=== PATIENT | male | born 1955 | race Caucasian/White ===

== ENCOUNTER 2016-09-04 23:29 | Emergency (ER) | payer SELFPAY ==
[2016-09-05] MEDS ORDERED: NORMAL SALINE 1000 ML 1,000 ML IV ONE (04:22)
[2016-09-05] MEDS ORDERED: ACETAMINOPHEN 325 MG TABLET PO ONE (04:23)
[2016-09-05] MEDS ORDERED: MORPHINE SULFATE 10 MG/ML INJ IV ONE (04:23)
[2016-09-05] MEDS ORDERED: ONDANSETRON HCL INJ/PF 4 MG/2 ML SDV IV ONE (04:23)
--- NOTE | 2016-09-05 05:13 | ER Document Report ---
ED General - General Chief Complaint: Abdominal Pain Stated Complaint: HEADACHE/ACHY Time Seen by Provider: 09/05/16 03:59 Mode of Arrival: Medic Information source: Patient TRAVEL OUTSIDE OF THE [place]. IN LAST 30 DAYS: No - HPI Notes: Patient is a 61-year-old white male history of previous colostomy secondary to abdominal trauma from 4 years ago status post colostomy takedown one year ago comes in with report that he has some chronic lower abdominal pain but it seems to have gotten worse over the last few days any noted fever onset this morning at about 11:00 with chills and EMS found a temperature of 101.9 when they picked him up. The patient states abdominal pain seems somewhat worse right lower quadrant surrounding the previous colostomy takedown site. The patient states he gets occasional bleeding from the site when he bends over and stretches the area accidentally. The patient also reports today having nausea but no vomiting. He states he also has noticed a cough today with pharyngitis and mild chest pain associated with the cough. He denies any difficulty breathing. He also reports generalized myalgias and a headache which is not the worst headache of his life. He describes also some mild diarrhea, but has not been on recent antibiotics. He reports no dysuria. He denies any other skin breakdown. He reports no insect bites that he knows of. He denies any specific neck tenderness. He is unaware of any exposure to the flu. - Related Data Allergies/Adverse Reactions: aspirin [Aspirin] Allergy (Severe, Verified 01/29/16 17:10) throat closes bismuth subsalicylate [From Pepto-Bismol] Allergy (Severe, Verified 01/29/16 17: 10) SKIN GONZALEZ NSAIDS (Non-Steroidal Anti-Inflamma [Nsaids] Allergy (Severe, Verified 01/29/16 17:10) throat closes celecoxib [From Celebrex] Allergy (Verified 01/29/16 17:10) Past Medical History - General Information source: Patient - Social History Smoking Status: Never Smoker Frequency of alcohol use: None Drug Abuse: None Lives with: Alone Family History: None Patient has suicidal ideation: No Patient has homicidal ideation: No - Past Medical History Cardiac Medical History: Denies: Hx Coronary Artery Disease, Hx Heart Attack, Hx Hypertension, Hx Pulmonary Embolism Pulmonary Medical History: Reports: Hx Pneumonia - 2013 Denies: Hx Asthma, Hx Bronchitis, Hx COPD, Hx Respiratory Failure, Hx Sleep Apnea, Hx Tuberculosis Neurological Medical History: Denies: Hx Cerebrovascular Accident, Hx Seizures Renal/ Medical History: Reports: Hx Kidney Stones. 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 Denies: Hx Appendectomy, Hx Cholecystectomy, Hx Colostomy, Hx Coronary Artery Bypass Graft , Hx Gastric Bypass Surgery, Hx Herniorrhaphy, Hx Pacemaker, Hx Tonsillectomy - Immunizations Hx Diphtheria, Pertussis, Tetanus Vaccination: No Review of Systems - Review of Systems Notes: REVIEW OF SYSTEMS: CONSTITUTIONAL : Reports fever and chills. EENT: Denies eye, ear pain or symptoms. Denies tongue, or mouth swelling or difficulty swallowing. CARDIOVASCULAR: Denies palpitations or racing or irregular heart beat. Denies ankle edema. RESPIRATORY: Denies shortness of breath, difficulty breathing, or wheezing. GASTROINTESTINAL: Denies abdominal distention. Denies vomiting. Denies blood in vomitus, stools, or per rectum. Denies black, tarry stools. Denies constipation. GENITOURINARY: Denies difficulty urinating, painful urination, burning, frequency, blood in urine, or discharge. MUSCULOSKELETAL: Denies joint pain or swelling. Reports generalized myalgias diffusely. SKIN: Denies rash or sores. Reports area around the colostomy site right lower quadrant region has not completely healed and has occasional bleeding. HEMATOLOGIC : Denies easy bruising or bleeding. LYMPHATIC: Denies swollen, enlarged glands. NEUROLOGICAL: Denies confusion or altered mental status. Denies passing out or loss of consciousness. Denies weakness or paralysis or loss of use of either side. Denies problems with gait or speech. Denies sensory loss, numbness, or tingling. Denies seizures. PSYCHIATRIC: Denies anxiety or stress. Denies depression, suicidal ideation, or homicidal ideation. ALL OTHER SYSTEMS REVIEWED AND NEGATIVE. Dictation was performed using [employer] ([email or web address] voice recognition software Physical Exam - Vital signs Vitals: Temp Pulse Resp BP Pulse Ox 99.9 F 86 18 132/82 H 93 09/04/16 23:39 09/04/16 23:39 09/04/16 23:39 09/04/16 23:39 09/04/16 23:39 - Notes Notes: PHYSICAL EXAMINATION: GENERAL: Well-appearing, well-nourished and in no acute distress. HEAD: Atraumatic, normocephalic. EYES: Pupils equal round and reactive to light, extraocular movements intact, sclera anicteric, conjunctiva are normal. ENT: Nares patent, oropharynx clear without exudates. Moist mucous membranes. Mild coryza noted. NECK: Normal range of motion, supple without lymphadenopathy LUNGS: Breath sounds clear to auscultation bilaterally and equal. No wheezes rales or rhonchi. HEART: Regular rate and rhythm without murmurs ABDOMEN: Soft nondistended abdomen. No guarding, no rebound. Patient has tenderness appreciated to the lower abdominal region right greater than left. The pain seems to center around the colostomy takedown site which has adhesions and scarring appreciated posteriorly. There is mild skin breakdown along the central area with evidence for previous bleeding. No current bleeding. No cellulitis or abscess noted to the area. Musculoskeletal: Normal range of motion, no pitting or edema. No cyanosis. Patient has diffuse myalgias, no specific other findings. NEUROLOGICAL: Cranial nerves grossly intact. Normal speech, normal gait. Normal sensory, motor exams PSYCH: Normal mood, normal affect. SKIN: Warm, Dry, normal turgor, no rashes or lesions noted. Course - Re-evaluation Re-evalutation: 09/05/16 05:15 Blood cultures and a lactic acid were drawn on the patient. Flu test and strep test taken on the patient given his symptoms. Tylenol was given for fever. Normal saline bolus 1 L ordered. Chest x-ray ordered to rule out pneumonia, and CT scan of the abdomen and pelvis to rule out intra-abdominal acute pathology inclusive of bowel obstruction versus colitis versus diverticulitis versus abscess. Urine specimen pending. EKG and cardiac enzymes ordered. After patient received Tylenol, Zofran, morphine, he denied any significant headache stated he felt somewhat better. 09/05/16 05:16 - Vital Signs Vital signs: Temp Pulse Resp BP Pulse Ox 100.1 F 86 15 138/78 H 94 09/05/16 03:39 09/04/16 23:39 09/05/16 05:00 09/05/16 04:01 09/05/16 05:00 - Laboratory Result Diagrams: 09/05/16 04:45 09/05/16 04:45 Laboratory results interpreted by me: 09/05/16 09/05/16 04:45 04:45 MCV 98 H Total Bilirubin 1.6 H ALT 281 H Discharge - Discharge Clinical Impression: Fever Qualifiers: Fever type: unspecified Qualified Code(s): R50.9 - Fever, unspecified Abdominal pain Qualifiers: Abdominal location: lower abdomen, unspecified Qualified Code(s): R10.30 - Lower abdominal pain, unspecified Headache Qualifiers: Headache type: unspecified Headache chronicity pattern: acute headache Intractability: not intractable Qualified Code(s): R51 - Headache Chest pain Qualifiers: Chest pain type: unspecified Qualified Code(s): R07.9 - Chest pain, unspecified
[2016-09-05 05:26] LABS: ABSOLUTE BASOPHILS # (AUTO) 0.1 10^3/uL (0.0-0.2); ABSOLUTE EOSINOPHILS # (AUTO) 0.2 10^3/uL (0.0-0.6); ABSOLUTE LYMPHOCYTES (AUTO) 1.3 10^3/uL (0.5-4.7); ABSOLUTE MONOCYTES (AUTO) 0.7 10^3/uL (0.1-1.4); ABSOLUTE NEUT (AUTO) 5.9 10^3/uL (1.7-8.2); BASOPHILS % (AUTO) 0.8 % (0-2); HEMATOCRIT 45.1 % (37.9-51.0); HEMOGLOBIN 15.1 g/dL (13.5-17.0); HGB HCT DIFFERENCE 0.2; LYMPHOCYTES % (AUTO) 15.7 % (13-45); MEAN CORPUSCULAR HEMOGLOBIN 32.7 pg (27.0-33.4); MEAN CORPUSCULAR HGB CONC 33.4 g/dL (32.0-36.0); MEAN CORPUSCULAR VOLUME 98 fl (80-97); MONOCYTES % (AUTO) 8.9 % (3-13); RED BLOOD COUNT 4.61 10^6/uL (4.35-5.55); RED CELL DISTRIBUTION WIDTH 13.2 % (11.5-14.0); SEGMENTED NEUTROPHILS % (AUTO) 72.6 % (42-78); WHITE BLOOD COUNT 8.1 10^3/uL (4.0-10.5)
--- NOTE | 2016-09-05 05:31 | RADIOLOGY REPORT (SQ) ---
EXAM DESCRIPTION: CHEST SINGLE VIEW COMPLETED DATE/TIME: 09/05/2016 5:14 am REASON FOR STUDY: cough, fever COMPARISON: None. EXAM PARAMETERS: NUMBER OF VIEWS: One view. TECHNIQUE: Single frontal radiographic view of the chest acquired. RADIATION DOSE: NA LIMITATIONS: None. FINDINGS: LUNGS AND PLEURA: Pulmonary vascular congestion. MEDIASTINUM AND HILAR STRUCTURES: No masses. Contour normal. HEART AND VASCULAR STRUCTURES: Heart normal in size. Atherosclerosis. BONES: No acute findings. HARDWARE: None in the chest. OTHER: No other significant finding. IMPRESSION: NO ACUTE RADIOGRAPHIC FINDING IN THE CHEST. TECHNICAL DOCUMENTATION: JOB ID: [id number]
[2016-09-05 05:40] LABS: ALANINE AMINOTRANSFERASE 281 U/L (21-72); ALBUMIN 4.3 g/dL (3.5-5.0); ALKALINE PHOSPHATASE 85 U/L (38-126); ANION GAP 12 (5-19); ASPARTATE AMINO TRANSFERASE 59 U/L (17-59); BILIRUBIN,DIRECT 0.3 mg/dL (0.0-0.4); BILIRUBIN,TOTAL 1.6 mg/dL (0.2-1.3); BLOOD UREA NITROGEN 10 mg/dL (7-20); CALCIUM 9.6 mg/dL (8.4-10.2); CARBON DIOXIDE 24 mmol/L (22-30); CHLORIDE 104 mmol/L (98-107); CREATININE RESULT 1.03 mg/dL (0.52-1.25); GLUCOSE 104 mg/dL (75-110); POTASSIUM 4.5 mmol/L (3.6-5.0); TOTAL PROTEIN 7.9 g/dL (6.3-8.2)
[2016-09-05 06:58] LABS: APPEARANCE,URINE CLEAR; BILIRUBIN,URINE NEGATIVE (NEGATIVE); GLUCOSE, URINE NEGATIVE (NEGATIVE); KETONES,URINE NEGATIVE (NEGATIVE); LEUKOCYTE ESTERASE,URINE NEGATIVE (NEGATIVE); NITRITE,URINE NEGATIVE (NEGATIVE); PROTEIN,URINE NEGATIVE (NEGATIVE); URINE SPECIFIC GRAVITY 1.012; UROBILINOGEN,URINE NEGATIVE mg/dL (<2.0)
--- NOTE | 2016-09-05 07:52 | RADIOLOGY REPORT (SQ) ---
EXAM DESCRIPTION: CT ABD/PELVIS WITH IV ORAL COMPLETED DATE/TIME: 09/05/2016 7:32 am REASON FOR STUDY: fever, lower abd pain, prior colostomy takedown COMPARISON: None. TECHNIQUE: CT scan of the abdomen and pelvis performed using helical scanning technique with dynamic intravenous contrast injection. No oral contrast. Images reviewed with lung, soft tissue, and bone windows. Reconstructed coronal and sagittal MPR images reviewed. Delayed images for evaluation of the urinary system also acquired. All images stored on PACS. All CT scanners at this facility use dose modulation, iterative reconstruction, and/or weight based d osing when appropriate to reduce radiation dose to as low as reasonably achievable (ALARA). [facility]: Dose Right [facility]: CareDose [facility]: Dose Right [facility]: Teradose 4D [facility]: Power Content CONTRAST TYPE AND DOSE: contrast/concentration: Isovue 370.00 mg/ml; Total Contrast Delivered: 90.0 ml; Total Saline Delivered: 70.0 ml RENAL FUNCTION: Creatinine 1.0 RADIATION DOSE: 37.14. LIMITATIONS: None. FINDINGS: LOWER CHEST: Small bibasilar atelectasis or scar. LIVER: Normal size. No masses. No dilated ducts. SPLEEN: Normal size. No focal lesions. PANCREAS: No masses. No significant calcifications. No adjacent inflammation or peripancreatic fluid collections. Pancreatic duct not dilated. GALLBLADDER: Minimal cholelithiasis -sludge, stable. ADRENAL GLANDS: No significant masses or asymmetry. RIGHT KIDNEY AND URETER: No solid masses. No significant calcifications. No hydronephrosis or hyd roureter. LEFT KIDNEY AND URETER: No solid masses. 0.2 cm stone. No hydronephrosis or hydroureter. AORTA AND VESSELS: No aneurysm. No dissection. Renal arteries, SMA, celiac without stenosis. RETROPERITONEUM: No retroperitoneal adenopathy, hemorrhage or masses. BOWEL AND PERITONEAL CAVITY: Bowel suture of the right paracentral abdomen. Minimal diverticulitis pattern associated with a the distal left colon. No significant free fluid and no abscess. APPENDIX: Normal. PELVIS: No mass or free fluid. Normal bladder. ABDOMINAL WALL: No masses. No hernias. BONES: Mild scoliotic curvature. Moderate vacuum disc desiccation at the L5-S1 and T11 through L1 le vels. OTHER: No other significant finding. IMPRESSION: Minimal left colonic diverticulitis. TECHNICAL DOCUMENTATION: JOB ID: [id number] Quality ID # [id number]: Final reports with documentation of one or more dose reduction techniques (e.g., Au tomated exposure control, adjustment of the mA and/or kV according to patient size, use of iterative reconstruction technique) 2010 [employer]- All Rights Reserved
[2016-09-05 08:16] VITALS: BP 151/101
--- NOTE | 2016-09-05 08:40 | EKG REPORT ---
SEVERITY:- BORDERLINE ECG - SINUS RHYTHM PROBABLE LEFT ATRIAL ABNORMALITY LEFT AXIS DEVIATION : Confirmed by: Marito Yepez 05-Sep-2016 08:39:12
== END 2016-09-05 08:17 | disposition home or self-care (01) ==
LOC: ER 23:29
DX: K57.33 Diverticulitis of large intestine without perforation or abscess with bleeding (principal); R51 Headache; R50.9 Fever, unspecified; R07.9 Chest pain, unspecified; R05 Cough; J02.9 Acute pharyngitis, unspecified; M79.1 Myalgia; R19.7 Diarrhea, unspecified; Z98.890 Other specified postprocedural states; Z88.6 Allergy status to analgesic agent; Z88.8 Allergy status to other drugs, medicaments and biological substances; Z87.01 Personal history of pneumonia (recurrent); L90.5 Scar conditions and fibrosis of skin
CPT/HCPCS: 93005; 99285; 96361; 96374; 96375; 36415; 87040; 87070; 87880; 83690; 85025; 80053; 81001; 84484; 83605; 87804; 71010; 74177; 93010; J2270; J2405; J7030

== ENCOUNTER → 2017-12-12 | Outpatient (CLI) | payer MEDICARE ==
--- NOTE | 2017-12-12 16:04 | RADIOLOGY REPORT (SQ) ---
EXAM DESCRIPTION: MRI LUMBAR SPINE WITHOUT COMPLETED DATE/TIME: 12/12/2017 12:22 pm REASON FOR STUDY: OTHER CHRONIC PAIN G89.29 OTHER CHRONIC PAIN COMPARISON: CT abdomen pelvis 09/05/2016 TECHNIQUE: Sagittal and Axial imaging includes T1, T2, STIR and gradient echo sequences. Coronal T2/ HASTE imaging. LIMITATIONS: None. FINDINGS: VISUALIZED UPPER ABDOMEN: Limited evaluation. No acute or suspicious findings suggested. SEGMENTATION: No transitional anatomy. The lowest well-developed disc space is labeled L5-S1. ALIGNMENT: Mild convex rightward lumbar curvature VERTEBRAE: No compression deformities BONE MARROW: Benign hemangioma T12 vertebral body. Mild fatty degenerative endplate changes at T11-1 2 and T12-L1 DISC SIGNAL: High-grade disc space loss of height at T11-12 and T12-L1. Diffuse decreased T2 weighte d intervertebral disc signal throughout the lumbar spine POSTERIOR ELEMENTS: Generally intact. No pars defect evident. HARDWARE: None in the spine. CORD AND CONUS: Normal in size and signal intensity. Conus at the L1 level. SOFT TISSUES: No aortic aneurysm seen. No bulky retroperitoneal adenopathy or mass. No paraspinal mas s or fluid. T11-12: Disc space loss of height with broad diffuse posterior disc bulging, mild bilateral facet an d ligament hypertrophy. Moderate right, mild left foraminal narrowing. Mild central stenosis T12-L1: Disc space loss of height with broad diffuse posterior disc bulging and bilateral facet hype rtrophy. Mild central stenosis. No significant foraminal narrowing. L1-L2: Minimal posterior disc bulging, mild bilateral facet hypertrophy. No central or foraminal enc roachment L2-L3: Minimal posterior disc bulging, mild bilateral facet hypertrophy. No central or foraminal enc roachment L3-L4: Mild diffuse posterior disc bulging right greater than left, moderate bilateral facet hypertro phy. Borderline central canal narrowing. Moderate right, mild left foraminal narrowing. L4-L5: Mild diffuse posterior disc bulging, moderate bilateral facet and ligament hypertrophy. Borde rline central canal narrowing. Moderate right, mild left foraminal narrowing L5-S1: Mild posterior disc bulge, bulky bilateral facet hypertrophy. No central stenosis. Mild bila teral foraminal narrowing. SACRUM: Visualized upper sacrum intact. OTHER: No other significant findings. IMPRESSION: Diffuse degenerative changes as above. TECHNICAL DOCUMENTATION: JOB ID: [id number] [employer]- All Rights Reserved Reading location - IP/workstation name: [email or web address]
== END ==
LOC: RAD 11:32
PROVIDERS: ATTEND Family Medicine
DX: G89.29 Other chronic pain (principal)
CPT/HCPCS: 72148

== ENCOUNTER → 2018-01-07 | Outpatient (CLI) | payer MEDICARE ==
--- NOTE | 2018-01-07 14:38 | RADIOLOGY REPORT (SQ) ---
EXAM DESCRIPTION: MRI RT LOWER EXTREMITY WITHOUT COMPLETED DATE/TIME: 01/07/2018 1:34 pm REASON FOR STUDY: RIGHT HIP PAIN (M25.551) M25.551 PAIN IN RIGHT HIP COMPARISON: None. TECHNIQUE: Righthip images acquired and stored on PACS. Multiplanar images to include fat sensitive sequences as T1, fluid sensitive sequences as T2/STIR and gradient echo sequences. Large FOV fat and fluid sensitive sequences include pelvis and opposite hip. LIMITATIONS: None. FINDINGS: BONE CORTEX AND MARROW: No generalized marrow replacement. No occult fracture. No worriso me bone lesions. TARGETED HIP: FEMORAL HEAD: Small osteophytes. Normal shape of the femoral head neck. ACETABULUM: Mild osteophyte and subchondral cyst formation. No effusion. LABRUM: Degenerative change. No obvious acute labral tear. TROCHANTER: No trochanteric bursal effusion. No edema/fluid at the insertions of the gluteus medius and gluteus minimus. OPPOSITE HIP: Limited evaluation. No worrisome bone lesions. No significant effusion. PELVIS, LOWER LUMBAR SPINE, SACROILIAC JOINTS: PELVIS : No insufficiency/stress fractures. No significant degenerative changes. Sacroiliac joints normal. L SPINE: See separate report 12/12/2017. MUSCLES AND SOFT TISSUES: Adductors and piriformis normal. Abductors and greater trochanteric bursa n ormal without edema or fluid. Iliopsoas bursa without fluid. Hamstring attachments without edema or t ear. PELVIC SOFT TISSUES: No masses or adenopathy. SCIATIC NERVE: Identified, without masses or abnormal signal. OTHER: No other significant finding. IMPRESSION: Osteoarthritis. No acute findings. TECHNICAL DOCUMENTATION: JOB ID: [id number] [employer]- All Rights Reserved Reading location - IP/workstation name: [email or web address]
== END ==
LOC: RAD 12:12
PROVIDERS: ATTEND Family Medicine
DX: M25.551 Pain in right hip (principal); M16.11 Unilateral primary osteoarthritis, right hip

== ENCOUNTER → 2018-02-22 | Outpatient (CLI) | payer MEDICARE ==
--- NOTE | 2018-02-22 11:20 | RADIOLOGY REPORT (SQ) ---
EXAM DESCRIPTION: U/S ABDOMEN LIMITED W/O DOP COMPLETED DATE/TIME: 02/22/2018 8:39 am REASON FOR STUDY: VENTRAL HERNIA W/O OBSTRUCTION OR GANGRENE K43.9 VENTRAL HERNIA WITHOUT OBSTRUCTI ON OR GANGRENE COMPARISON: Abdominal CT scan dated August 2016 TECHNIQUE: Dynamic and static grayscale images acquired of the localized site of clinical concern an d recorded on PACS. Additional selected color Doppler and spectral images recorded. SITE OF CONCERN: Right mid abdomen LIMITATIONS: None. FINDINGS: SKIN AND SUBCUTANEOUS TISSUES: No masses. No fluid collections. No edema. No definite her lexa sac was identified. DEEP SOFT TISSUES/MUSCLES: No masses. No fluid collections. No edema. VASCULAR: No increased or decreased vascularity. No occlusions. OTHER: There is an area of shadowing in the region of the patient's pain which could represent an are a of apparent scarring identified on the CT scan. Other etiologies cannot be completely excluded how ever. IMPRESSION: No definite hernia sac is identified. Other findings as noted above TECHNICAL DOCUMENTATION: JOB ID: [id number] [employer]- All Rights Reserved Reading location - IP/workstation name: [email or web address]
== END ==
LOC: RAD 07:05
PROVIDERS: ATTEND Family Medicine
DX: K43.9 Ventral hernia without obstruction or gangrene (principal)
CPT/HCPCS: 76705

== ENCOUNTER 2018-10-19 17:49 | Emergency (ER) | payer MEDICARE, MEDICAID ==
--- NOTE | 2018-10-19 19:59 | ER Document Report ---
ED Medical Screen (RME) - General Chief Complaint: Low Back Pain Stated Complaint: HIP PAIN Time Seen by Provider: 10/19/18 19:48 Primary Care Provider: ZULEMA THAO MD [Primary Care Provider] - Follow up as needed Mode of Arrival: Ambulatory Information source: Patient Notes: Patient presents complaining of right hip pain that radiates around to right groin and into the scrotum. Patient states he has had pain for the past week. Patient does complain of some difficulty voiding. No fever. Patient also states that he is taken 14 tablets of Tylenol today to treat his pain symptoms. I have greeted and performed a rapid initial assessment of this patient. A comprehensive ED assessment and evaluation of the patient, analysis of test results and completion of the medical decision making process will be conducted by additional ED providers. TRAVEL OUTSIDE OF THE [place] IN LAST 30 DAYS: No - Related Data Allergies/Adverse Reactions: aspirin [Aspirin] Allergy (Severe, Verified 01/29/16 17:10) throat closes bismuth subsalicylate [From Pepto-Bismol] Allergy (Severe, Verified 01/29/16 17:10) SKIN GONZALEZ NSAIDS (Non-Steroidal Anti-Inflamma [Nsaids] Allergy (Severe, Verified 01/29/16 17:10) throat closes celecoxib [From Celebrex] Allergy (Verified 01/29/16 17:10) ketorolac [From Toradol] Allergy (Verified 10/19/18 17:56) Past Medical History - Social History Frequency of alcohol use: None Drug Abuse: None - Past Medical History Cardiac Medical History: Denies: Hx Coronary Artery Disease, Hx Heart Attack, Hx Hypertension, Hx Pulmonary Embolism Pulmonary Medical History: Reports: Hx Pneumonia - 2013 Denies: Hx Asthma, Hx Bronchitis, Hx COPD, Hx Respiratory Failure, Hx Sleep Apnea, Hx Tuberculosis Neurological Medical History: Denies: Hx Cerebrovascular Accident, Hx Seizures Renal/ Medical History: Reports: Hx Kidney Stones. 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 Denies: Hx Appendectomy, Hx Colostomy, Hx Coronary Artery Bypass Graft, Hx Gastric Bypass Surgery, Hx Herniorrhaphy, Hx Pacemaker, Hx Tonsillectomy - Immunizations Hx Diphtheria, Pertussis, Tetanus Vaccination: No Physical Exam - Vital signs Vitals: Temp Pulse Resp BP Pulse Ox 97.7 F 95 16 139/99 H 95 10/19/18 18:18 10/19/18 18:18 10/19/18 18:18 10/19/18 18:18 10/19/18 18:18 - General Notes: Right lower back, right inguinal tenderness Course - Vital Signs Vital signs: Temp Pulse Resp BP Pulse Ox 97.7 F 95 16 139/99 H 95 10/19/18 18:18 10/19/18 18:18 10/19/18 18:18 10/19/18 18:18 10/19/18 18:18 Doctor's Discharge - Discharge Referrals: ZULEMA THAO MD [Primary Care Provider] - Follow up as needed
--- NOTE | 2018-10-19 21:41 | RADIOLOGY REPORT (SQ) ---
EXAM DESCRIPTION: US SCROTUM COMPLETED DATE/TME: 10/19/2018 19:56 CLINICAL HISTORY: 63 years, Male, scrotal pain COMPARISON: None. TECHNIQUE: Axial 2-D grayscale images of the scrotum were obtained. Doppler was utilized. LIMITATIONS: None. FINDINGS: Right testicle measures 2.7 x 3.7 x 2.3 cm in size. It demonstrates normal echogenicity and normal low resistance arterial waveforms. A few small right epididymal head cysts are noted. There is a tiny right hydrocele. Left testicle measures 3.3 x 1.7 x 2.3 cm in size. It also demonstrates normal echogenicity and normal low resistance arterial waveforms. Left epididymal head appears normal. There is a tiny left hydrocele. Focused sonographic evaluation of the right lower quadrant of the patient's site of pain was performed. No suspicious sonographic abnormalities are identified at this location. IMPRESSION: No acute intratesticular abnormality. Tiny bilateral hydroceles. copyright 2010 [employer]- All Rights Reserved
--- NOTE | 2018-10-19 21:42 | RADIOLOGY REPORT (SQ) ---
AP PELVIS AND 2 VIEWS OF RIGHT HIP EXAM DATE: 10/19/2018 7:56 PM CDT HISTORY: r hip pain. COMPARISON: None. FINDINGS: No acute fracture or dislocation is seen. The joint spaces are preserved. The soft tissues are unremarkable. IMPRESSION: No acute fracture or malalignment.
[2018-10-19 21:47] LABS: ABSOLUTE BASOPHILS # (AUTO) 0.1 10^3/uL (0.0-0.2); ABSOLUTE EOSINOPHILS # (AUTO) 0.2 10^3/uL (0.0-0.6); ABSOLUTE LYMPHOCYTES (AUTO) 3.8 10^3/uL (0.5-4.7); ABSOLUTE MONOCYTES (AUTO) 0.8 10^3/uL (0.1-1.4); ABSOLUTE NEUT (AUTO) 4.9 10^3/uL (1.7-8.2); BASOPHILS % (AUTO) 0.8 % (0-2); EOSINOPHILS % (AUTO) 2.1 % (0-6); HEMATOCRIT 46.6 % (37.9-51.0); LYMPHOCYTES % (AUTO) 38.8 % (13-45); MEAN CORPUSCULAR HGB CONC 34.5 g/dL (32.0-36.0); MEAN CORPUSCULAR VOLUME 99 fl (80-97); MONOCYTES % (AUTO) 7.9 % (3-13); PLATELET COUNT 401 10^3/uL (150-450); RED BLOOD COUNT 4.73 10^6/uL (4.35-5.55); RED CELL DISTRIBUTION WIDTH 13.5 % (11.5-14.0); SEGMENTED NEUTROPHILS % (AUTO) 50.4 % (42-78); TOTAL CELLS COUNTED % (AUTO) 100 %; WHITE BLOOD COUNT 9.7 10^3/uL (4.0-10.5)
--- NOTE | 2018-10-19 21:53 | RADIOLOGY REPORT (SQ) ---
EXAM DESCRIPTION: XR LUMBAR SPINE ANTEROPOSTERIOR, LATERAL, AND OBLIQUES COMPLETED DATE/TME: 10/19/2018 19:56 CLINICAL HISTORY: 63 years, Male, r lower back pain COMPARISON: None. NUMBER OF VIEWS: 5 TECHNIQUE: Five views of the lumbar spine were obtained in AP, bilateral oblique, lateral and spot projections. LIMITATIONS: None. FINDINGS: Slight dextroconvex curvature of the lumbar spine and levoconvex curvature of the lower thoracic spine. Alignment of the lumbar spine is within normal limits. There is no clearly acute subluxation or fracture deformity. Morphology of the vertebral bodies and intervertebral disc spaces is compatible with multilevel degenerative change. Lower thoracic and L1 level vertebral body loss of height, age indeterminate. Multilevel ventral osseous spurring compatible with osteophyte formation and degenerative endplate change. Loss of disk height of L5-S1 compatible with disk degenerative change. The facets are normal in alignment bilaterally. The remainder of the visualized bones are within normal limits. Dense atherosclerotic calcification of the abdominopelvic aorta. IMPRESSION: Multilevel degenerative changes as detailed above. If the patient's symptoms persist, follow-up evaluation with MRI is recommended. copyright 2010 [employer]- All Rights Reserved
[2018-10-19 21:56] LABS: ANION GAP 12 (5-19); BLOOD UREA NITROGEN 17 mg/dL (7-20); CALCIUM 10.3 mg/dL (8.4-10.2); CARBON DIOXIDE 25 mmol/L (22-30); CHLORIDE 103 mmol/L (98-107); GLUCOSE 89 mg/dL (75-110); POTASSIUM 4.7 mmol/L (3.6-5.0)
[2018-10-19 21:57] LABS: ACETAMINOPHEN < 10 ug/mL (10-30)
[2018-10-19] MEDS ORDERED: FENTANYL CITRATE INJ/PF 100 MCG/2 ML AMPUL IV ONE (23:08)
--- NOTE | 2018-10-19 23:15 | ER Document Report ---
ED General - General Chief Complaint: Low Back Pain Stated Complaint: HIP PAIN Time Seen by Provider: 10/19/18 19:48 Primary Care Provider: ZULEMA THAO MD [Primary Care Provider] - Follow up as needed Mode of Arrival: Ambulatory Notes: RME Provider note: Patient presents complaining of right hip pain that radiates around to right groin and into the scrotum. Patient states he has had pain for the past week. Patient does complain of some difficulty voiding. No fever. Patient also states that he is taken 14 tablets of Tylenol today to treat his pain symptoms. MY HPI: Patient is complaining of multiple complaints. Initially was complaining of right flank pain radiating to his right groin but then is complaining of an electrical pain radiating towards the lateral aspect of his right upper leg. Patient is complaining of generalized right hip pain. Patient does complain of urinary hesitancy. Patient states he has seen his primary care provider for right hip pain in the p ast. States he was placed on gabapentin and states he did not like how it made him feel. Patient states he does have a history of a kidney stone and feels as though this pain is similar. Patient also has an extensive history of abdominal surgeries. Has multiple scars. Said he had an ileostomy bag after a traumatic injury to his abdomen. Patient does have extensive scarring that is well-healed. Patient's denying any change in his bowel habits. Patient's denying any fevers, injury to his right hip, right back, right flank, right abdomen recently. TRAVEL OUTSIDE OF THE [place] IN LAST 30 DAYS: No - Related Data Allergies/Adverse Reactions: aspirin [Aspirin] Allergy (Severe, Verified 01/29/16 17:10) throat closes bismuth subsalicylate [From Pepto-Bismol] Allergy (Severe, Verified 01/29/16 17:10) SKIN GONZALEZ NSAIDS (Non-Steroidal Anti-Inflamma [Nsaids] Allergy (Severe, Verified 01/29/16 17:10) throat closes celecoxib [From Celebrex] Allergy (Verified 01/29/16 17:10) ketorolac [From Toradol] Allergy (Verified 10/19/18 17:56) Past Medical History - General Information source: Patient - Social History Smoking Status: Never Smoker Chew tobacco use (# tins/day): No Frequency of alcohol use: None Drug Abuse: None Family History: None Patient has suicidal ideation: No Patient has homicidal ideation: No - Past Medical History Cardiac Medical History: Denies: Hx Coronary Artery Disease, Hx Heart Attack, Hx Hypertension, Hx Pulmonary Embolism Pulmonary Medical History: Reports: Hx Pneumonia - 2013 Denies: Hx Asthma, Hx Bronchitis, Hx COPD, Hx Respiratory Failure, Hx Sleep Apnea, Hx Tuberculosis Neurological Medical History: Denies: Hx Cerebrovascular Accident, Hx Seizures Renal/ Medical History: Reports: Hx Kidney Stones. Denies: Hx Peritoneal Dialysis Malignancy Medical History: Denies Hx Lung Cancer GI Medical History: Denies: Hx Crohn's Disease, Hx Gastroesophageal Reflux Di sease, Hx Hiatal Hernia, Hx Irritable Bowel, Hx Liver Failure, Hx Pancreatitis, Hx Ulcer Musculoskeletal Medical History: Reports Hx Arthritis - fingers, Denies Hx Fibromyalgia, Denies Hx Muscular Dystrophy Psychiatric Medical History: Reports: Hx Depression - from care of ileostomy/wants it gone Denies: Hx Bipolar Disorder, Hx Post Traumatic Stress Disorder, Hx Schizophrenia Traumatic Medical History: Reports: Hx Fractures - rt long finger Past Surgical History: Reports: Hx Abdominal Surgery - hernia repair/illeostomy, Hx Bowel Surgery - 11/12/14 viscous bowel perforation, Hx Cholecystectomy, Hx Orthopedic Surgery - R Knee and R Shoulder. Denies: Hx Appendectomy, Hx Colostomy, Hx Coronary Artery Bypass Graft, Hx Gastric Bypass Surgery, Hx Herniorrhaphy, Hx Pacemaker, Hx Tonsillectomy - Immunizations Hx Diphtheria, Pertussis, Tetanus Vaccination: No Review of Systems - Review of Systems Constitutional: denies: Fever EENT: No symptoms reported Cardiovascular: No symptoms reported Respiratory: No symptoms reported Gastrointestinal: See HPI Genitourinary: See HPI Male Genitourinary: See HPI Musculoskeletal: See HPI Skin: No symptoms reported Hematologic/Lymphatic: No symptoms reported Neurological/Psychological: No symptoms reported Physical Exam - Vital signs Vitals: Temp Pulse Resp BP Pulse Ox 97.7 F 95 16 139/99 H 95 10/19/18 18:18 10/19/18 18:18 10/19/18 18:18 10/19/18 18:18 10/19/18 18:18 - Notes Notes: GENERAL: Alert, interacts well. No acute distress. HEAD: Normocephalic, atraumatic. EYES: Pupils equal, round, and reactive to light. Extraocular movements intact. ENT: Oral mucosa moist, tongue midline. NECK: Full range of motion. Supple. Trachea midline. LUNGS: Clear to auscultation bilaterally, no wheezes, rales, or rhonchi. No respiratory distress. HEART: Regular rate and rhythm. No murmur ABDOMEN: Soft, no McBurney's point tenderness, no Vaughn sign noted. Non-distended. Bowel sounds present in all 4 quadrants. Intermittent pain right pelvic region into right groin. EXTREMITIES: Moves all 4 extremities spontaneously. No edema, normal radial and dorsalis pedis pulses bilaterally. No cyanosis. 5 out of 5 strength all 4 extremities. Pain upon palpation right ASIS. Full range of motion right hip, right knee, right ankle. BACK: no cervical, thoracic, lumbar midline tenderness. No saddle anesthesia, normal distal neurovascular exam. Right CVA tenderness noted. NEUROLOGICAL: Alert and oriented x3. Normal speech. cranial nerves II through XII grossly intact PSYCH: Normal affect, normal mood. SKIN: Warm, dry, normal turgor. No rashes or lesions noted. Genitalia: [employer] Arina PCT, bilateral testicles nonerythematous, slight tenderness of right testicle. Course - Re-evaluation Re-evalutation: 10/20/18 03:01 Laboratory 10/19/18 10/19/18 10/19/18 21:28 21:28 21:28 WBC 9.7 RBC 4.73 Hgb 16.0 Hct 46.6 MCV 99 H MCH 34.0 H MCHC 34.5 RDW 13.5 Plt Count 401 Seg Neutrophils % 50.4 Lymphocytes % 38.8 Monocytes % 7.9 Eosinophils % 2.1 Basophils % 0.8 Absolute Neutrophils 4.9 Absolute Lymphocytes 3.8 Absolute Monocytes 0.8 Absolute Eosinophils 0.2 Absolute Basophils 0.1 Sodium 140.0 Potassium 4.7 Chloride 103 Carbon Dioxide 25 Anion Gap 12 BUN 17 Creatinine 1.07 Est GFR ( Amer) > 60 Est GFR (Non-Af Amer) > 60 Glucose 89 Calcium 10.3 H Total Bilirubin 1.2 Direct Bilirubin 0.4 Neonat Total Bilirubin Not Reportable Neonat Direct Bilirubin Not Reportable Neonat Indirect Bili Not Reportable AST 22 ALT 25 Alkaline Phosphatase 54 Total Protein 8.1 Albumin 5.0 Urine Color Urine Appearance Urine pH Ur Specific [place] Urine Protein Urine Glucose (UA) Urine Ketones Urine Blood Urine Nitrite Urine Bilirubin Urine Urobilinogen Ur Leukocyte Esterase Urine WBC (Auto) Urine RBC (Auto) Urine Mucus (Auto) Urine Ascorbic Acid Acetaminophen < 10 L 10/19/18 22:07 WBC RBC Hgb Hct MCV MCH MCHC RDW Plt Count Seg Neutrophils % Lymphocytes % Monocytes % Eosinophils % Basophils % Absolute Neutrophils Absolute Lymphocytes Absolute Monocytes Absolute Eosinophils Absolute Basophils Sodium Potassium Chloride Carbon Dioxide Anion Gap BUN Creatinine Est GFR ( Amer) Est GFR (Non-Af Amer) Glucose Calcium Total Bilirubin Direct Bilirubin Neonat Total Bilirubin Neonat Direct Bilirubin Neonat Indirect Bili AST ALT Alkaline Phosphatase Total Protein Albumin Urine Color YELLOW Urine Appearance CLEAR Urine pH 5.0 Ur Specific [place] 1.031 Urine Protein NEGATIVE Urine Glucose (UA) NEGATIVE Urine Ketones TRACE H Urine Blood NEGATIVE Urine Nitrite NEGATIVE Urine Bilirubin NEGATIVE Urine Urobilinogen NEGATIVE Ur Leukocyte Esterase NEGATIVE Urine WBC (Auto) 1 Urine RBC (Auto) 2 Urine Mucus (Auto) RARE Urine Ascorbic Acid 40 H Acetaminophen Hip/Pelvis X-Ray 10/19/18 19:56 IMPRESSION: No acute fracture or malalignment. Lumbar Spine X-Ray 10/19/18 19:56 IMPRESSION: Multilevel degenerative changes as detailed above. If the patient's symptoms persist, follow-up evaluation with MRI is recommended. copyright 2010 [employer]- All Rights Reserved Scrotum Ultrasound 10/19/18 19:56 IMPRESSION: No acute intratesticular abnormality. Tiny bilateral hydroceles. copyright 2010 [employer]- All Rights Reserved Abdomen/Pelvis CT 10/19/18 23:08 IMPRESSION: No acute abdominal or pelvic pathology. 10/20/18 03:02 Patient's labs show no signs of leukocytosis, no signs of anemia, no signs of electrolyte abnormalities, urine shows no signs of infection. Patient's Tylenol level was negative. CT imaging shows no signs of abdominal pelvic pathology to include kidney stones. Patient is been treated with pain medication in the emergency department and upon reassessment is sleeping in no apparent distress. Easily arousable to verbal stimuli. Patient then voices that his hip continues to hurt. I have discussed he needs to follow-up with primary care provider and orthopedics for potential MRI for this degenerative disc disease. As I walk out of the room patient asked me to turn the light off because he would like to go back to sleep. At this time will discharge with return precautions and follow-up recommendations. Verbal discharge instructions given a the bedside and opportunity for questions given. Medication warnings reviewed. Patient is in agreement with this plan and has verbalized understanding of return precautions and the need for primary care follow-up in the next 24-72 hours. This medical record was dictated with voice recognizing software. There may be grammatical, syntax errors that are unintended. - Vital Signs Vital signs: Temp Pulse Resp BP Pulse Ox 97.7 F 95 16 139/99 H 95 10/19/18 18:18 10/19/18 18:18 10/19/18 18:18 10/19/18 18:18 10/19/18 18:18 - Laboratory Result Diagrams: 10/19/18 21:28 10/19/18 21:28 Laboratory results interpreted by me: 10/19/18 10/19/18 10/19/18 21:28 21:28 22:07 MCV 99 H MCH 34.0 H Calcium 10.3 H Urine Ketones TRACE H Urine Ascorbic Acid 40 H Acetaminophen < 10 L Discharge - Discharge Clinical Impression: Right hip pain, Right groin pain Right low back pain Qualifiers: Chronicity: acute Sciatica presence: without sciatica Qualified Code(s): M54.5 - Low back pain Condition: Stable Disposition: HOME, SELF-CARE Instructions: Muscle Strain ([facility]), Low Back Pain ([facility]) Additional Instructions: As we discussed you have been seen and treated in the emergency department for your right back, right hip, right groin, right leg pain. Your tests revealed no signs of abnormalities besides degenerative disc disease. You should follow-up with your primary care provider and orthopedics for an MRI. Please return to the emergency room for any further concerns. Referrals: ZULEMA THAO MD [Primary Care Provider] - Follow up as needed SAUNDRA DIEZ DO [ACTIVE STAFF] - Follow up as needed
[2018-10-19 23:32] LABS: ALKALINE PHOSPHATASE 54 U/L (38-126); ASPARTATE AMINO TRANSFERASE 22 U/L (17-59); BILIRUBIN,DIRECT 0.4 mg/dL (0.0-0.4); BILIRUBIN,TOTAL 1.2 mg/dL (0.2-1.3); TOTAL PROTEIN 8.1 g/dL (6.3-8.2)
[2018-10-20 01:11] LABS: APPEARANCE,URINE CLEAR; BILIRUBIN,URINE NEGATIVE (NEGATIVE); COLOR,URINE YELLOW; GLUCOSE, URINE NEGATIVE (NEGATIVE); KETONES,URINE TRACE mg/dL (NEGATIVE); LEUKOCYTE ESTERASE,URINE NEGATIVE (NEGATIVE); NITRITE,URINE NEGATIVE (NEGATIVE); PROTEIN,URINE NEGATIVE (NEGATIVE); URINE SPECIFIC GRAVITY 1.031; UROBILINOGEN,URINE NEGATIVE mg/dL (<2.0)
--- NOTE | 2018-10-20 02:05 | RADIOLOGY REPORT (SQ) ---
CT ABDOMEN PELVIS WITH IV CONTRAST EXAM DATE: 10/19/2018 11:08 PM CDT HISTORY: Right lower quadrant pain. Right flank pain. COMPARISON: 02/22/2018 TECHNIQUE: CT scan of the abdomen and pelvis was performed with IV contrast. This exam was performed according to our departmental dose-optimization program, which includes automated exposure control, adjustment of the mA and/or kV according to patient size and/or use of iterative reconstruction technique. FINDINGS: The lung bases are clear. No pleural or pericardial effusions. Diffuse hepatic steatosis. There has been a prior cholecystectomy. Spleen, pancreas, adrenal glands, and kidneys are normal. No hydronephrosis or urinary stones. The pelvic organs are unremarkable. There are scattered colonic diverticula without surrounding inflammatory changes. No small bowel obstruction. The appendix is normal. No intraperitoneal free fluid or free air is seen. Prior ventral hernia repair is noted. Small left fat-containing inguinal hernia. The aorta is normal caliber and contains atherosclerotic calcifications. There are mild degenerative changes of the spine. IMPRESSION: No acute abdominal or pelvic pathology.
[2018-10-20 03:14] VITALS: BP 173/81
== END 2018-10-20 03:13 | disposition home or self-care (01) ==
LOC: ER 17:49
DX: M47.9 Spondylosis, unspecified (principal); M54.5 Low back pain; R10.2 Pelvic and perineal pain; M25.551 Pain in right hip; N43.3 Hydrocele, unspecified; R39.11 Hesitancy of micturition; Z98.890 Other specified postprocedural states; Z88.8 Allergy status to other drugs, medicaments and biological substances; Z90.49 Acquired absence of other specified parts of digestive tract
CPT/HCPCS: 99284; 96374; 36415; 80307; 85025; 80076; 80048; 81001; 73502; 72110; 76870; 93976; 74177; J3010

== ENCOUNTER → 2018-12-02 | Outpatient (CLI) | payer MEDICARE, MEDICAID ==
--- NOTE | 2018-12-02 13:46 | RADIOLOGY REPORT (SQ) ---
EXAM DESCRIPTION: CT ABD/PELVIS WITH IV ORAL COMPLETED DATE/TIME: 12/02/2018 1:27 pm REASON FOR STUDY: RIGHT LOWER QUADRANT PAIN (R10.31) R10.31 RIGHT LOWER QUADRANT PAIN COMPARISON: CT abdomen pelvis 10/20/2018, 09/05/2016, 01/29/2016 TECHNIQUE: CT scan of the abdomen and pelvis performed using helical scanning technique with dynamic intravenous contrast injection. Patient drank oral contrast. Images reviewed with lung, soft tissue , and bone windows. Reconstructed coronal and sagittal MPR images reviewed. Delayed images for evalua tion of the urinary system also acquired. All images stored on PACS. All CT scanners at this facility use dose modulation, iterative reconstruction, and/or weight based d osing when appropriate to reduce radiation dose to as low as reasonably achievable (ALARA). [facility]: Dose Right [facility]: CareDose [facility]: Dose Right [facility]: Teradose 4D [facility]: Screen Tonic CONTRAST TYPE AND DOSE: contrast/concentration: Isovue 350.00 mg/ml; Total Contrast Delivered: 100.0 ml; Total Saline Delivered: 72.0 ml RENAL FUNCTION: Creatinine 0.9 RADIATION DOSE: CT Rad equipment meets quality standard of care and radiation dose reduction techniq ues were employed. CTDIvol: 15.0 - 17.3 mGy. DLP: 1629 mGy-cm.. LIMITATIONS: None. FINDINGS: There is minimal stranding along the right lower quadrant anterior abdominal wall on axial image 60-62, in an area of prior surgical incision. Anterior abdominal wall appears thin but intact on sagittal image 29 in this area. Findings are unchanged from previous exams. Intact laparoscopic umbilical ventral hernia repair. LOWER CHEST: No significant findings. No nodules or infiltrates. LIVER: Normal size. No masses. No dilated ducts. SPLEEN: Normal size. No focal lesions. PANCREAS: No masses. No significant calcifications. No adjacent inflammation or peripancreatic fluid collections. Pancreatic duct not dilated. GALLBLADDER: Surgically absent ADRENAL GLANDS: No significant masses or asymmetry. RIGHT KIDNEY AND URETER: No solid masses. 2 mm right lower pole intrarenal nonobstructive stone N o hydronephrosis or hydroureter. LEFT KIDNEY AND URETER: No solid masses. Less than 1 cm cyst left lower pole kidney. 2 mm left lowe r pole intrarenal nonobstructive stone. No hydronephrosis or hydroureter. AORTA AND VESSELS: No aneurysm. No dissection. Renal arteries, SMA, celiac without stenosis. RETROPERITONEUM: No retroperitoneal adenopathy, hemorrhage or masses. BOWEL AND PERITONEAL CAVITY: Patient drank oral contrast. No CT evidence of bowel obstruction or darian e intraperitoneal air or fluid. Descending colon diverticuli without CT signs of acute diverticuliti s. APPENDIX: Normal. PELVIS: No mass. No free fluid. Normal bladder. ABDOMINAL WALL: Fatty left inguinal hernia. Other findings as above BONES: Degenerative disc changes L5-S1 OTHER: No other significant finding. IMPRESSION: Minimal right lower quadrant stranding along the anterior abdominal wall. Appearance is similar compared to prior scans. Intact laparoscopic umbilical hernia repair Fat containing left inguinal hernia. Post cholecystectomy. Tiny bilateral intrarenal nonobstructive stones. Descending colon diverticulo sis TECHNICAL DOCUMENTATION: JOB ID: [id number] Quality ID # [id number]: Final reports with documentation of one or more dose reduction techniques (e.g., Au tomated exposure control, adjustment of the mA and/or kV according to patient size, use of iterative reconstruction technique) 2010 [employer]- All Rights Reserved Reading location - IP/workstation name: [email or web address]
== END ==
LOC: RAD 12:46
PROVIDERS: ATTEND Surgery
DX: R10.31 Right lower quadrant pain (principal)
CPT/HCPCS: 74177; 82565

== ENCOUNTER → 2019-11-09 | Outpatient (CLI) | payer MEDICARE, MEDICAID ==
--- NOTE | 2019-11-09 13:38 | RADIOLOGY REPORT (SQ) ---
EXAM DESCRIPTION: SACROILIAC JOINTS IMAGES COMPLETED DATE/TIME: 11/09/2019 12:18 pm REASON FOR STUDY: M25.552 PAIN IN LEFT HIP M25.552 PAIN IN LEFT HIP COMPARISON: None. NUMBER OF VIEWS: Three views. TECHNIQUE: AP and oblique views of the sacroiliac joints. LIMITATIONS: None. FINDINGS: MINERALIZATION: Normal. BONES: No acute fracture or dislocation. No worrisome bone lesions. No significant osteophytes. JOINTS: There is mild sclerosis of the SI joints. There is no fusion. SOFT TISSUES: No soft tissue swelling. No radio-opaque foreign body. OTHER: Lower lumbar degenerative changes. Mild joint space narrowing in the left hip. IMPRESSION: Mild sacroiliitis. Mild left hip degenerative changes. Lower lumbar degenerative valerio es. TECHNICAL DOCUMENTATION: JOB ID: [id number] 2010 [employer]- All Rights Reserved Reading location - IP/workstation name: [email or web address]
--- NOTE | 2019-11-09 13:39 | RADIOLOGY REPORT (SQ) ---
EXAM DESCRIPTION: HIP LEFT AP/LATERAL IMAGES COMPLETED DATE/TIME: 11/09/2019 12:18 pm REASON FOR STUDY: M25.552 PAIN IN LEFT HIP M25.552 PAIN IN LEFT HIP COMPARISON: None. NUMBER OF VIEWS: Two views. TECHNIQUE: AP pelvis and additional frog legview of the left hip. LIMITATIONS: None. FINDINGS: MINERALIZATION: Normal. LEFT HIP: Mild joint space narrowing. Small marginal osteophyte on the femoral head. RIGHT HIP: No fracture or dislocation. No worrisome bone lesions. Limited views. PUBIS AND ISCHIUM: No fracture. PELVIS: No fracture. SACRUM: No fracture or dislocation. No worrisome bone lesions. SOFT TISSUES: No findings. OTHER: No other significant finding. IMPRESSION: Mild degenerative joint changes in the left hip. TECHNICAL DOCUMENTATION: JOB ID: [id number] 2010 [employer]- All Rights Reserved Reading location - IP/workstation name: [email or web address]
== END ==
LOC: RAD 11:40
PROVIDERS: ATTEND Nurse Practitioner Family
DX: M16.12 Unilateral primary osteoarthritis, left hip (principal); M46.1 Sacroiliitis, not elsewhere classified; M25.552 Pain in left hip
CPT/HCPCS: 72200